=== PATIENT | male | born 1955 | race Caucasian/White ===

== ENCOUNTER 2018-09-26 00:18 | Emergency (ER) | payer MEDICARE, OTHER ==
[~2018-09-26] VITALS: Ht 188 cm; Wt 153.0 kg
[2018-09-26 00:21] VITALS: BP 158/95
[2018-09-26] MEDS ORDERED: orphenadrine citrate 60mg/2ml inj. IM ONE (00:35)
[2018-09-26] MEDS ORDERED: acetaminophen 325mg tablet PO ONE (00:35)
[2018-09-26] MEDS ORDERED: HYDROcodone/acetaminophen 10/325mg tab PO ONE (00:35)
[2018-09-26] MEDS ORDERED: ondansetron 4mg rapidly disintigrating tab PO ONE (00:35)
[2018-09-26] MEDS ORDERED: CYCL-1 PO (02:02)
[2018-09-26] MEDS ORDERED: HYDR-3965 PO (02:02)
== END 2018-09-26 02:24 | disposition home or self-care (01) ==
LOC: ER 00:20
DX: M54.9 Dorsalgia, unspecified (principal); E11.42 Type 2 diabetes mellitus with diabetic polyneuropathy; Z79.899 Other long term (current) drug therapy; Z87.891 Personal history of nicotine dependence
CPT/HCPCS: 96372; 99284; J2360